=== PATIENT | female | born 1985 | race Caucasian/White ===

== ENCOUNTER 2017-04-05 11:28 | Emergency (ER) | payer OTHER ==
[2017-04-05 11:38] VITALS: RESP 16; TEMP 98.1
--- NOTE | 2017-04-05 12:35 | EDPHY ---
H & P Time Seen by Provider: 04/05/17 11:44 HPI/ROS: CHIEF COMPLAINT: Finger laceration HISTORY OF PRESENT ILLNESS: 32-year-old female presents to the emergency department after she caught her right 5th finger between a canoe and a dock while she was at work. 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 She has a crush injury to the tip of that finger and the nail is avulsed. No other injury. Otherwise well. REVIEW OF SYSTEMS: Aside from elements discussed in the HPI, a comprehensive 10-point review of systems was reviewed and is negative. PAST MEDICAL HISTORY: Patient denies. SOCIAL HISTORY: Nonsmoker. No alcohol. Works as a health nurse. Injury occurred on the job. GENERAL APPEARANCE: Alert, no acute distress.. FOCUSED EXAM OF right 5th finger: Nail is avulsed from the epicondyle fold. Significant bleeding is noted on the nail bed. No injury proximal to the nail. Normal two-point sensation. Smoking Status: Light smoker Constitutional: Initial Vital Signs Temperature (C) 36.7 C 04/05/17 11:30 Heart Rate 74 04/05/17 11:30 Respiratory Rate 16 04/05/17 11:30 Blood Pressure 117/76 04/05/17 11:30 O2 Sat (%) 94 04/05/17 11:30 O2 Delivery Mode Room Air Allergies/Adverse Reactions: No Known Allergies Allergy (Verified 04/05/17 11:38) Home Medications: Medication Instructions Recorded Cephalexin [Keflex (*)] 500 mg PO QID 5 Days 04/05/17 04/05/17 VITAMIN D 04/05/17 Medical Decision Making - Diagnostics Imaging Results: Xray: 5th finger x-ray was obtained. I viewed the images myself on the PACS system. My interpretation of the images is: No fracture. The radiology interpretation is: Agrees. I discussed the results with the patient. Imaging: I viewed and interpreted images myself ED Course/Re-evaluation: Digital block utilizing bupivacaine without epinephrine was placed. Patient received good pain relief. Procedure: Nail bed laceration and nail removal The wound was cleaned and irrigated per nursing and tech documentation. Finger was then draped and explored. Nail was easily removed as it had already avulsed from the base. Small 4 mm laceration is present across the nail bed. This was sutured with 2 5 0 Vicryl sutures. Small amount of packing was placed under the epicondyle fold. Tube gauze dressing was then placed. Patient tolerated the procedure well. Procedure was performed by myself. X-ray demonstrates no fracture of the distal tuft. Patient was instructed to take Keflex 500 mg by mouth 4 times a day for 5 days for infection prevention. Please see the discharge instructions regarding other specific wound care instructions. Differential Diagnosis: Differential diagnosis for the patient's injury was considered including but not limited to contusion, abrasion, laceration, nail bed laceration, nail avulsion, fracture, open fracture, or dislocation. Departure - Departure Disposition: Home, Routine, Self-Care Clinical Impression: Laceration of finger nail bed Qualifiers: Encounter type: initial encounter Qualified Code(s): S61.319A - Laceration without foreign body of unspecified finger with damage to nail, initial encounter Nail avulsion, finger Qualifiers: Encounter type: initial encounter Qualified Code(s): S61.309A - Unspecified open wound of unspecified finger with damage to nail, initial encounter Condition: Good Instructions: Care For Your Absorbable Stitches (ED), Nail Avulsion (ED), Facial Laceration (ED) Additional Instructions: 1. The nail has been removed. A small amount of packing has been placed under the cuticle. This should remain in place for about 48 hours. After this, a new nail will start to grow out from under the cuticle. 2. The packing is also laying across the top of the nail bed. You may pull this packing out in 48 hours. 3. There are 2 absorbable sutures placed on the nail bed. These may be removed in 7 days or you may wait until they absorb on their own. 4. No soaking the finger in water, swimming, washing dishes, or other activities in which the finger would be wet for a long period of time. This restriction is in place for the next 10 days. 5. Please take antibiotic as directed. Keflex 500 mg by mouth 4 times a day for 5 days. 6. Use ibuprofen and Tylenol as needed for pain. 7. You may remove the tube gauze dressing in 48 hours. After that, apply thin layer of antibiotic cream to the nail bed while it heals. Than keep the finger dressed with some type of non adherent dressing. 8. Return to the emergency department or seek care if you have any concerns. Referrals: Silvia Slaughter MD [Primary Care Provider] - As per Instructions Stand Alone Forms: Work Limited Duty, Work Comp Follow Up Prescriptions: Cephalexin [Keflex (*)] 500 mg PO QID 5 Days
[2017-04-05 12:45] VITALS: BP 115/74; PULSE 70; O2SAT 97
== END 2017-04-05 12:44 | disposition home or self-care (01) ==
LOC: CED 11:28
PROC: 0HQQXZZ Repair Finger Nail, External Approach (ICD-10-PCS; principal; 2017-04-05)
DX: S61.316A Laceration without foreign body of right little finger with damage to nail, initial encounter (principal); W23.1XXA Caught, crushed, jammed, or pinched between stationary objects, initial encounter; Y92.828 Other wilderness area as the place of occurrence of the external cause; Y99.0 Civilian activity done for income or pay; Y93.89 Activity, other specified; F17.200 Nicotine dependence, unspecified, uncomplicated
CPT/HCPCS: 73140-PO